=== PATIENT | male | born 1990 | race Caucasian/White ===

== ENCOUNTER 2023-11-07 16:53 | Emergency (ER) | payer MEDICAID ==
[~2023-11-07] VITALS: Ht 177.8 cm; Wt 77.1 kg
[2023-11-07 17:01] VITALS: BP 150/87; PULSE 93; RESP 18; TEMP 98; O2SAT 99
[2023-11-07 18:03] LABS: BASOPHILS % (AUTO) 0.3 % (0.0-2.0); EOSINOPHILS % (AUTO) 0.5 % (0.0-4.0); HEMATOCRIT 41.5 % (36-52); LYMPHOCYTES # (AUTO) 1.6 K/uL (2.0-11.5); MEAN CORPUSCULAR HEMOGLOBIN 30 pg (27-31); MEAN CORPUSCULAR HGB CONC 34 g/dL (33-37); MONOCYTES # (AUTO) 0.5 K/uL (0.8-1.0); MONOCYTES % (AUTO) 7.6 % (1.7-9.3); NEUTROPHILS # (AUTO) 4.9 K/uL (1.8-7.7); NEUTROPHILS % (AUTO) 69.6 % (42.2-75.2); PLATELET COUNT (AUTO) 165 K/uL (140-450); RED BLOOD CELL COUNT(AUTO) 4.67 MIL/uL (4.20-6.10); RED CELL DISTRIBUTION WIDTH 14.4 % (11.6-13.7); WHITE BLOOD COUNT (AUTO) 7.1 K/uL (4.8-10.8)
[2023-11-07 18:04] LABS: APPEARANCE,URINE CLEAR (CLEAR); BILIRUBIN,URINE NEGATIVE (NEGATIVE); BLOOD, URINE NEGATIVE (NEGATIVE); COLOR,URINE YELLOW (YELLOW); LEUKOCYTE ESTERASE ,URINE NEGATIVE (NEGATIVE); NITRITE, URINE NEGATIVE (NEGATIVE); PH,URINE 6.5 (5.0-9.0); PROTEIN,URINE NEGATIVE (NEGATIVE); UGLUCOSE NEGATIVE (NEGATIVE); UROBILINOGEN,URINE 0.2 EU/dL (0.2 - 1)
[2023-11-07 18:17] LABS: INR 1.05 (0.8-1.2)
[2023-11-07 18:22] LABS: ANION GAP 13.5 (8-16); CALCIUM 8.7 mg/dL (8.5-10.1); POTASSIUM 3.5 mmol/L (3.5-5.1)
[2023-11-07 18:26] LABS: ACETAMINOPHEN < 0.5 ug/ml (10-30); ALANINE AMINOTRANSFERASE 27 U/L (12-78); ALCOHOL, BLOOD < 3 mg/dL (<10); ALKALINE PHOSPHATASE 65 U/L (50-136); ASPARTATE AMINOTRANSFERASE 15 U/L (15-37); BILIRUBIN,DIRECT 0.1 mg/dL (0.0-0.3); PHOSPHORUS 2.6 mg/dL (2.5-4.9); TOTAL BILIRUBIN 0.5 mg/dL (0.0-1.0); TOTAL PROTEIN, SERUM 6.6 g/dL (6.4-8.2)
[2023-11-07 18:27] LABS: SALICYLATE < 2.8 mg/dL (2.8-20.0)
[2023-11-07 18:28] LABS: AMPHETAMINE, URINE NEGATIVE ng/ml (NEG <=1000); BARBITURATE, URINE NEGATIVE ng/ml (NEG <=200); BENZODIAZEPINE, URINE NEGATIVE ng/mL (NEG <=200)
[2023-11-07 18:29] LABS: CANNABINOID, URINE NEGATIVE ng/mL (NEG <=50); COCAINE, URINE NEGATIVE ng/mL (NEG <=300); OPIATE, URINE NEGATIVE ng/mL (NEG <=2000); PHENCYCLIDINE SCREEN,URINE NEGATIVE ng/mL (NEG <=25)
[2023-11-07 19:42] VITALS: O2SAT 99
[2023-11-07 21:31] VITALS: O2SAT 99
[2023-11-07 22:33] VITALS: O2SAT 99
[2023-11-07] MEDS: LORazepam 1 MG TAB PO ONE (23:36)
[2023-11-08] VITALS (7 sets, daily range): O2SAT 99
[2023-11-09] VITALS (9 sets, daily range): O2SAT 97–99
[2023-11-10 00:06] VITALS: O2SAT 97
[2023-11-10 08:00] VITALS: O2SAT 99
[2023-11-10] MEDS: ACETAMINOPHEN 325 MG TAB PO ONE (08:30)
[2023-11-10 14:10] VITALS: O2SAT 99
[2023-11-10 14:14] VITALS: BP 132/64; PULSE 72; RESP 17; TEMP 97.9
[2023-11-10 16:36] VITALS: O2SAT 99
[2023-11-10 19:12] VITALS: O2SAT 99
== END 2023-11-10 23:55 | disposition home or self-care (01) ==
LOC: MED 16:53
DX: T60.4X2A Toxic effect of rodenticides, intentional self-harm, initial encounter (principal); Z20.822 Contact with and (suspected) exposure to COVID-19; F14.90 Cocaine use, unspecified, uncomplicated; Y92.89 Other specified places as the place of occurrence of the external cause
CPT/HCPCS: 36415; 80048; 80076; 80305; 81003; 83735; 84100; 85025; 85610; 87426; 93005; 99291; G0480; G0482